=== PATIENT | female | born 1985 | race Caucasian/White ===

== ENCOUNTER 2018-03-19 10:21 | Outpatient (REF) | payer BC, SELFPAY ==
--- NOTE | 2018-03-19 09:35 | PAPFT_PTH ---
PATIENT: Mavis Rodriguez LOC: [facility] U#:[id number] AGE/SX: 32/F ROOM: RE03/19/[address]: Deidra Don NP : 1985 BED: DIS: 03/19/2018 SPEC #: [id number] RECD: 03/19/18 12:47 STATUS: YARELI REQ #: [id number] DANIELLE: 03/19/18 09:[address]: Deidra Don NP DEPT: [facility] Cytology RECD BY: Tracy Pascual ENTERED: 03/19/18 12:47 SP TYPE: PAPFT OTHR DR: Dyana Hammer Tissues: 1 - CX/ENDOCX FOR PAP SMEARS Procedures: PAP THIN PREP/[facility] Screening HPV DNA PROBE Comments: [id number]
== END 2018-03-19 10:41 ==
LOC: LBN 10:21
PROVIDERS: PCP Family Medicine; Visit Provider Nurse Practitioner Women's Health
DX: Z12.4 Encounter for screening for malignant neoplasm of cervix (principal); Z11.51 Encounter for screening for human papillomavirus (HPV)
CPT/HCPCS: 88142; 87624

== ENCOUNTER 2018-05-15 14:47 | Outpatient (REF) | payer BC, SELFPAY | END 2018-05-15 15:07 | LOC: NCHCN 14:47 | PROVIDERS: PCP Family Medicine; Visit Provider Family Medicine | DX: N39.0 Urinary tract infection, site not specified (principal) | CPT/HCPCS: 87077; 87086; 87186 ==

== ENCOUNTER 2019-03-22 09:31 | Outpatient (REF) | payer BC, SELFPAY ==
--- NOTE | 2019-03-22 08:30 | PAPFT_PTH ---
PATIENT: Mavis Rodriguez LOC: [facility] U#:[id number] AGE/SX: 33/F ROOM: RE03/22/[address]: Deidra Don NP : 1985 BED: DIS: 03/22/2019 SPEC #: [id number] RECD: 03/22/19 12:00 STATUS: YARELI BENOIT #: [id number] DANIELLE: 03/22/19 08:[address]: Deidra Don NP DEPT: [facility] Cytology RECD BY: Veronica Freeman ENTERED: 03/22/19 12:01 SP TYPE: PAPFT OTHR DR: Dyana Hammer Tissues: 1 - CX/ENDOCX FOR PAP SMEARS Procedures: PAP THIN PREP/[facility] Screening HPV DNA PROBE Comments: [id number]
== END 2019-03-22 09:51 ==
LOC: LBN 09:31
PROVIDERS: PCP Family Medicine; Visit Provider Nurse Practitioner Women's Health
DX: Z12.4 Encounter for screening for malignant neoplasm of cervix (principal); Z11.51 Encounter for screening for human papillomavirus (HPV)
CPT/HCPCS: 88142; 87624

== ENCOUNTER 2020-04-19 10:09 | Outpatient (REF) | payer BC, SELFPAY ==
--- NOTE | 2020-04-19 09:00 | PAPFT_PTH ---
PATIENT: Mavis Rodriguez LOC: [facility] U#:[id number] AGE/SX: 34/F ROOM: RE04/19/[address]: Deidra Don NP : 1985 BED: DIS: 04/19/2020 SPEC #: [id number] RECD: 04/19/20 12:55 STATUS: YARELI REQ #: [id number] DANIELLE: 04/19/20 09:[address]: Deidra Don NP DEPT: [facility] Cytology RECD BY: Tracy Pascual ENTERED: 04/19/20 12:56 SP TYPE: PAPFT OTHR DR: Dyana Hammer Tissues: 1 - CX/ENDOCX FOR PAP SMEARS Procedures: PAP THIN PREP/[facility] Screening HPV DNA PROBE Comments: [id number]
== END 2020-04-19 10:29 ==
LOC: LBN 10:09
PROVIDERS: PCP Family Medicine; Visit Provider Nurse Practitioner Women's Health
DX: Z12.4 Encounter for screening for malignant neoplasm of cervix (principal); Z11.51 Encounter for screening for human papillomavirus (HPV)
CPT/HCPCS: 88142; 87624

== ENCOUNTER 2020-07-10 11:33 | Outpatient (REF) | payer OTHER, SELFPAY ==
[2020-07-11 12:26] LABS: COVID-19 RT-PCR UVMMC Result Positive (Negative)
== END 2020-07-10 11:34 | disposition home or self-care (01) ==
LOC: NCHCN 11:33
PROVIDERS: PCP Family Medicine; Visit Provider Family Medicine
DX: Z20.822 Contact with and (suspected) exposure to COVID-19 (principal)
CPT/HCPCS: U0003

== ENCOUNTER 2021-11-23 00:36 | Outpatient (CLI) | payer OTHER, SELFPAY ==
--- NOTE | 2021-11-23 09:29 | DI.RAD_ITS ---
Exam(s) XR ANKLE RT COMPLETE EXAM: XR ANKLE RT COMPLETE CLINICAL HISTORY: RT ANKLE PAIN, M25.571. TECHNIQUE: 2D digital imaging was performed. Three views. COMPARISON: No exams were available for comparison FINDINGS: BONES: No acute fracture is present. No bony destructive lesion is seen. JOINTS: The ankle mortise is normally aligned. SOFT TISSUE: Normal. IMPRESSION: Unremarkable radiographs of the right ankle. DATA REPOSITORY: RADIATION DOSE DELIVERED:
== END 2021-11-23 00:56 ==
LOC: DI 00:38
PROVIDERS: PCP Family Medicine; Visit Provider Nurse Practitioner Family
DX: M25.571 Pain in right ankle and joints of right foot (principal)
CPT/HCPCS: 73610

== ENCOUNTER 2022-01-02 15:13 | Outpatient (REF) | payer OTHER, SELFPAY | END 2022-01-02 15:14 | disposition home or self-care (01) | LOC: NCHCN 15:13 | PROVIDERS: PCP Family Medicine; Visit Provider Nurse Practitioner Family | DX: N39.0 Urinary tract infection, site not specified (principal) | CPT/HCPCS: 87077; 87086; 87186 ==

== ENCOUNTER 2022-04-26 10:40 | Outpatient (REF) | payer OTHER, SELFPAY ==
[2022-04-26 18:19] LABS: Abs Immature Grans 0.03 10^3/uL (0.0-0.06); Absolute Basophil Count 0.03 10^3/uL (0.0-0.2); Absolute Eosinophil Count 0.08 10^3/uL (0.0-0.7); Absolute Lymphocyte Count 2.27 10^3/uL (1.2-3.4); Absolute Monocyte Count 0.43 10^3/uL (0.1-0.8); Absolute Neutrophil Count 7.76 10^3/uL (1.2-6.7); Basophils % 0.3; Eosinophils % 0.8; HCT 42.4 % (36.0-46.0); HGB 14.2 g/dL (11.2-15.7); Immature Grans % 0.3; Lymphocytes % 21.4; MCH 30.1 pg (27.0-33.0); MCHC 33.5 % (32.0-36.0); MCV 90 fL (80-95); MPV 10.6 fL (8.0-11.0); Monocytes % 4.1; Neutrophils % 73.1; Platelet Count 281 10^3/uL (130-400); RBC 4.71 10^6/uL (3.93-5.22); RDW 12.3 % (11.7-14.6); RDW-SD 40.5 fL
[2022-04-26 18:41] LABS: ALT 20 U/L (14-59); AST 17 U/L (15-37); Alkaline Phosphatase 45 U/L (46-116); Anion Gap 8.7 mmol/L (3-11); BUN 13 mg/dL (7-18); Bilirubin, Total 0.3 mg/dL (0.2-1.0); CO2 26.3 mmol/L (21.0-32.0); CREATININE 0.9 mg/dL (0.55-1.02); Calcium 9.5 mg/dL (8.5-10.1); Chloride 106 mmol/L (98-107); Estimated GFR 84.44 (mL/min/1.73m2); Glucose 96 mg/dL (74-106); Potassium 4.9 mmol/L (3.5-5.1); Sodium 141 mmol/L (136-145); TSH (W/Ref FT4) 1.87 uIU/mL (0.36-3.74); Total Protein 7.8 g/dL (6.4-8.2)
== END 2022-04-26 10:41 | disposition home or self-care (01) ==
LOC: NCHCN 10:40
PROVIDERS: PCP Family Medicine; Visit Provider Family Medicine
DX: R42 Dizziness and giddiness (principal)
CPT/HCPCS: 80053; 84443; 85025

== ENCOUNTER 2022-08-05 10:45 | Outpatient (REF) | payer OTHER, SELFPAY ==
--- NOTE | 2022-08-05 10:00 | PAPFT_PTH ---
PATIENT: Mavis Rodriguez LOC: [facility] U#:[id number] AGE/SX: 36/F ROOM: RE08/05/[address]: Deidra Don NP : 1985 BED: DIS: 08/05/2022 SPEC #: [id number] RECD: 08/05/22 13:14 STATUS: YARELI REJen #: [id number] DANIELLE: 08/05/22 10:[address]: Deidra Don NP DEPT: [facility] Cytology RECD BY: Tracy Pascual ENTERED: 08/05/22 13:14 SP TYPE: PAPFT OTHR DR: Dyana Hammer Tissues: 1 - CX/ENDOCX FOR PAP SMEARS Procedures: PAP THIN PREP/[facility] Screening HPV DNA PROBE Comments: [id number]
== END 2022-08-05 10:46 | disposition home or self-care (01) ==
LOC: LBN 10:45
PROVIDERS: PCP Family Medicine; Visit Provider Nurse Practitioner Women's Health
DX: Z12.4 Encounter for screening for malignant neoplasm of cervix (principal); Z11.51 Encounter for screening for human papillomavirus (HPV); Z87.410 Personal history of cervical dysplasia
CPT/HCPCS: 88142; 87624

== ENCOUNTER 2023-03-07 21:15 | Outpatient (REF) | payer OTHER, SELFPAY ==
[2023-03-07 21:28] LABS: Bilirubin Negative (Negative); Blood Moderate (Negative); Clarity Clear (Clear); Glucose Negative (Negative); Ketones Negative (Negative); Leukocyte Esterase Trace (Negative); Nitrite Negative (Negative); Specific Gravity 1.015 (1.005-1.025); Urobilinogen 0.2 mg/dL (Up to 0.2)
[2023-03-07 21:33] LABS: Bacteria Negative HPF (Negative); C & S Indicated? Yes; Casts Negative LPF (Negative); Crystals Negative HPF (Negative); Epithelial Cells Negative HPF (Negative); Mucus Negative (Negative)
== END 2023-03-07 21:16 | disposition home or self-care (01) ==
LOC: LBN 21:15
PROVIDERS: PCP Family Medicine; Visit Provider Physician Assistant
DX: N39.0 Urinary tract infection, site not specified (principal)
CPT/HCPCS: 81003; 81015; 87086

== ENCOUNTER 2024-11-30 12:01 | Outpatient (REF) | payer OTHER, SELFPAY ==
[2024-11-30 16:13] LABS: ALT 31 U/L (14-59); AST 19 U/L (15-37); Albumin 3.8 g/dL (3.4-5.0); Alkaline Phosphatase 57 U/L (46-116); Anion Gap 8.8 mmol/L (3-11); BUN 10 mg/dL (7-18); Bilirubin, Total 0.4 mg/dL (0.2-1.0); CO2 27.2 mmol/L (21.0-32.0); Calcium 9.1 mg/dL (8.5-10.1); Chloride 105 mmol/L (98-107); Estimated GFR 112.75 (mL/min/1.73m2); Glucose 92 mg/dL (74-106); Potassium 4.6 mmol/L (3.5-5.1); Sodium 141 mmol/L (136-145); Total Protein 6.8 g/dL (6.4-8.2)
[2024-11-30 16:54] LABS: Calculated LDL 79 mg/dL (<100); Cholesterol 143 mg/dL (<200); HDL Cholesterol 51 mg/dL (>or=50); Triglyceride 66 mg/dL (<150); Vitamin D 25 Total 53 ng/mL (30-100)
== END 2024-11-30 12:02 | disposition home or self-care (01) ==
LOC: NCHCN 12:01
PROVIDERS: PCP Family Medicine; Visit Provider Family Medicine
DX: Z00.00 Encounter for general adult medical examination without abnormal findings (principal)
CPT/HCPCS: 80053; 80061; 82306

== ENCOUNTER 2024-12-13 01:32 | Outpatient (CLI) | payer OTHER, SELFPAY ==
--- NOTE | 2024-12-13 07:55 | DI.MAMMO_ITS ---
Exam(s) MAMMO SCREENING EXAM: MAMMO SCREENING CLINICAL HISTORY: screening TECHNIQUE: Mammograms were interpreted according to the usual protocol including computer analysis with CAD system, tomosynthesis and C-view imaging. COMPARISON: None. Baseline examination. FINDINGS: The breasts are composed of heterogeneously dense fibroglandular densities, Breast Density category C. No suspicious masses or suspicious microcalcifications are seen. No skin thickening or abnormal axillary lymph nodes are seen. IMPRESSION: BI-RADS Category 1, Negative mammogram. Yearly screening mammography is recommended. Breast Density: Category C - The breasts are heterogeneously dense, which may obscure small masses. Breast density Category C or D implies that the patient has dense breast tissue. Dense breast tissue can make it harder to find cancer on a mammogram. Dense breast tissue is also associated with an increased risk of breast cancer. This information about the result of the mammogram report was provided to the patient to raise their awareness. Use this report when you speak with the patient about their risks for breast cancer, which includes their family history. At that time, you may recommend additional screening tests (Ultrasound or MRI) as these tests may add significant information. A negative radiographic report should not delay biopsy if a dominant or clinically suspicious mass is present. Up to ten percent of cancers are not identified on mammography. A negative report may reinforce clinical impression. Adenosis and dense breasts may obscure an underlying neoplasm. False positive reports average 6 to 10%.
== END 2024-12-13 01:52 ==
LOC: DI 01:32
PROVIDERS: PCP Family Medicine; Visit Provider Nurse Practitioner Women's Health
DX: Z12.31 Encounter for screening mammogram for malignant neoplasm of breast (principal); R92.333 Mammographic heterogeneous density, bilateral breasts
CPT/HCPCS: 77063; 77067